=== PATIENT | male | born 1965 | race Caucasian/White ===

== ENCOUNTER 2021-09-28 14:23 | Emergency (ER) | payer BC, SELFPAY ==
--- NOTE | 2021-09-28 14:42 | PC.NURSE ---
PT DECLINES TO STAY ANY LONGER. STATES HE WILL JUST TAKE A HOME COVID TEST. PT IS AWARE TO RETURN IF NEEDED. AMBULATORY WITH A STEADY GAIT.
== END 2021-09-29 03:16 | disposition left against medical advice (07) ==
PROVIDERS: PCP Family Medicine
DX: Z53.21 Procedure and treatment not carried out due to patient leaving prior to being seen by health care provider (principal)
CPT/HCPCS: 99199

== ENCOUNTER 2021-09-29 15:18 | Outpatient (CLI) | payer BC, SELFPAY ==
--- NOTE | ~2021-09-29 | XR_ITS ---
EXAMINATION: XR chest 2V 09/29/2021 15:50 INDICATION: Acute bronchitis, cough and congestion PROCEDURE: 2 view chest COMPARISON: 10/17/2017 FINDINGS: The lungs are clear. The cardiomediastinal silhouette is within normal limits. There are no pleural effusions. There is no pneumothorax suspected. There is dextroscoliosis. IMPRESSION: 1: NO ACUTE CARDIOPULMONARY DISEASE. Reviewed, dictated and finalized at location A.
== END 2021-09-29 15:19 | disposition home or self-care (01) ==
PROVIDERS: PCP Family Medicine; Visit Provider Physician Assistant Medical
DX: J20.9 Acute bronchitis, unspecified (principal); R05.3 Chronic cough
CPT/HCPCS: 71046

== ENCOUNTER 2022-05-27 09:00 | Outpatient (NON) | payer BC, SELFPAY | END 2022-05-27 09:01 | disposition home or self-care (01) | LOC: ANHLAB 05-28 12:51 | PROVIDERS: PCP Family Medicine; Visit Provider Nurse Practitioner | DX: R22.9 Localized swelling, mass and lump, unspecified (principal) | CPT/HCPCS: 88304 ==